=== PATIENT | male | born 1995 | race Caucasian/White ===

== ENCOUNTER 2017-08-11 19:32 | Emergency (ER) | payer OTHER ==
[2017-08-11 19:47] VITALS: RESP 16; TEMP 98.4
--- NOTE | 2017-08-11 20:01 | EDPHY ---
H & P Stated Complaint: N/V X 2 MONTHS Time Seen by Provider: 08/11/17 20:01 HPI/ROS: CHIEF COMPLAINT: Chronic nausea and vomiting HISTORY OF PRESENT ILLNESS: The patient presents to the ED for evaluation of several months of chronic nausea and vomiting. The patient denies any significant abdominal pain. He has had some mild shortness of breath. The patient attributes the symptoms to a possible mold exposure at his apartment. The patient takes no regular medications. He denies significant past medical history aside from anxiety. The patient does report he is a daily marijuana user. REVIEW OF SYSTEMS: A comprehensive 10 point review of systems is otherwise negative aside from elements mentioned in the history of present illness. Source: Patient - Personal History Current Tetanus Diphtheria and Acellular Pertussis (TDAP): Yes Tetanus Vaccine Date: LESS THAN 10 YEARS - Medical/Surgical History Hx Asthma: No Hx Chronic Respiratory Disease: No Hx Diabetes: No Hx Cardiac Disease: No Hx Renal Disease: No Hx Cirrhosis: No Hx Alcoholism: No Hx HIV/AIDS: No Hx Splenectomy or Spleen Trauma: No Other PMH: Tonsillitis, WISDOM TEETH REMOVED - Social History Smoking Status: Never smoked Drug Use: Marijuana - Physical Exam Exam: General Appearance: Alert, no distress Eyes: Pupils equal and round no pallor or injection ENT, Mouth: Mucous membranes moist Respiratory: There are no retractions, lungs are clear to auscultation Cardiovascular: Regular rate and rhythm Gastrointestinal: Abdomen is soft and nontender, no masses, bowel sounds normal Neurological: A&O, normal motor function, normal sensory exam, normal cranial nerves Skin: Warm and dry, no rashes Musculoskeletal: Neck is supple nontender Extremities: symmetrical, full range of motion Constitutional: Initial Vital Signs Temperature (C) 36.9 C 08/11/17 19:44 Heart Rate 98 08/11/17 19:44 Respiratory Rate 16 08/11/17 19:44 Blood Pressure 123/81 H 08/11/17 19:44 O2 Sat (%) 96 08/11/17 19:44 O2 Delivery Mode Room Air Allergies/Adverse Reactions: Penicillins Allergy (Unknown, Verified 08/21/15 18:39) as child Home Medications: Medication Instructions Recorded Ondansetron Odt [Zofran Odt] 4 mg PO Q4PRN PRN #20 tab 08/11/17 Medical Decision Making ED Course/Re-evaluation: The patient presents the ED with several months of unexplained nausea and vomiting in the setting of chronic marijuana use. The patient's physical examination is reassuring without evidence of an acute abdomen. The patient had an IV established. He received 4 mg of IV Zofran for nausea and vomiting. He received 1 L of normal saline. At this point time the etiology of the patient's symptoms somewhat uncertain. I have informed him of the possibility of can avoid induced hyperemesis. The patient is somewhat hesitant this a possible etiology. I have refer the patient back to his primary care provider. He may require further evaluation by Gastroenterology. The patient will be provided a prescription for Zofran and advised to curtail his THC usage Differential Diagnosis: Differential diagnosis considered include gastritis, pancreatitis, cannabis induced hyperemesis, dehydration - Data Points Laboratory Results: Laboratory Results 08/11/17 20:13 08/11/17 20:13 08/11/17 08/11/17 20:13 20:13 WBC 11.22 10^3/uL H 10^3/uL (3.80-9.50) RBC 5.18 10^6/uL 10^6/uL (4.40-6.38) Hgb 16.4 g/dL g/dL (13.7-17.5) Hct 46.5 % % (40.0-51.0) MCV 89.8 fL fL (81.5-99.8) MCH 31.7 pg pg (27.9-34.1) MCHC 35.3 g/dL g/dL (32.4-36.7) RDW 12.2 % % (11.5-15.2) Plt Count 158 10^3/uL 10^3/uL (150-400) MPV 10.9 fL fL (8.7-11.7) Neut % (Auto) 87.3 % H % (39.3-74.2) Lymph % (Auto) 6.6 % L % (15.0-45.0) [place] % (Auto) 5.2 % % (4.5-13.0) Eos % (Auto) 0.4 % L % (0.6-7.6) Baso % (Auto) 0.1 % L % (0.3-1.7) Nucleat RBC Rel Count 0.0 % % (0.0-0.2) Absolute Neuts (auto) 9.80 10^3/uL H 10^3/uL (1.70-6.50) Absolute Lymphs (auto) 0.74 10^3/uL L 10^3/uL (1.00-3.00) Absolute Monos (auto) 0.58 10^3/uL 10^3/uL (0.30-0.80) Absolute Eos (auto) 0.05 10^3/uL 10^3/uL (0.03-0.40) Absolute Basos (auto) 0.01 10^3/uL L 10^3/uL (0.02-0.10) Absolute Nucleated RBC 0.00 10^3/uL 10^3/uL (0-0.01) Immature Gran % 0.4 % % (0.0-1.1) Immature Gran # 0.04 10^3/uL 10^3/uL (0.00-0.10) Sodium 140 mEq/L mEq/L (135-145) Potassium 3.7 mEq/L mEq/L (3.5-5.2) Chloride 103 mEq/L mEq/L (97-110) Carbon Dioxide 22 mEq/l mEq/l (22-31) Anion Gap 15 mEq/L mEq/L (8-16) BUN 12 mg/dL mg/dL (7-23) Creatinine 1.0 mg/dL mg/dL (0.7-1.3) Estimated GFR > 60 Glucose 79 mg/dL mg/dL (70-100) Calcium 9.9 mg/dL mg/dL (8.5-10.4) Total Bilirubin 1.1 mg/dL mg/dL (0.1-1.4) Conjugated Bilirubin 0.2 mg/dL mg/dL (0.0-0.5) Unconjugated Bilirubin 0.9 mg/dL mg/dL (0.0-1.1) AST 22 IU/L IU/L (17-59) ALT 31 IU/L IU/L (21-72) Alkaline Phosphatase 81 IU/L IU/L (38-126) Total Protein 7.7 g/dL g/dL (6.3-8.2) Albumin 5.0 g/dL g/dL (3.5-5.0) Lipase 84 IU/L IU/L (23-300) Medications Given: Discontinued Medications Sodium Chloride (Ns) 1,000 mls @ 0 mls/hr IV EDNOW ONE; Wide Open PRN Reason: Protocol Stop: 08/11/17 20:05 Last Admin: 08/11/17 20:13 Dose: 1,000 mls Ondansetron HCl (Zofran) 4 mg IVP EDNOW ONE Stop: 08/11/17 20:06 Last Admin: 08/11/17 20:13 Dose: 4 mg Departure - Departure Disposition: Home, Routine, Self-Care Clinical Impression: Vomiting Condition: Good Instructions: Acute Nausea and Vomiting (ED) Additional Instructions: 1. Zofran as needed for nausea and vomiting. 2. Please schedule a follow-up appointment with Dr. Somers. If you continue to have chronic symptoms further workup by Gastroenterology may be indeed. 3. Do recommend completely abstaining from THC as this may be contributing to your symptoms today. Referrals: Michael Somers MD [Primary Care Provider] - As per Instructions
[2017-08-11] MEDS ORDERED: NS 1,000 ML IV ONE (20:04)
[2017-08-11] MEDS ORDERED: ONDANSETRON 4 MG/2 ML VIAL IVP ONE (20:05)
[2017-08-11 20:22] LABS: PLATELET COUNT 158 10^3/uL (150-400)
[2017-08-11 21:26] VITALS: BP 136/98; PULSE 66; O2SAT 100
[2017-08-12] MEDS ORDERED: ONDANSETRON 4MG PREPACK#2 BTL TAKEHOME ONE (00:44)
== END 2017-08-11 21:47 | disposition home or self-care (01) ==
DX: R11.10 Vomiting, unspecified (principal); E86.9 Volume depletion, unspecified
CPT/HCPCS: 96374; J2405